=== PATIENT | male | born 1990 | race Caucasian/White ===

== ENCOUNTER 2017-06-28 20:47 | Observation (INO) | payer OTHER ==
[~2017-06-28] VITALS: Ht 182.9 cm; Wt 85.0 kg
[2017-06-28 20:48] VITALS: BP 137/88; PULSE 82; RESP 16; TEMP 99.3; O2SAT 100
[2017-06-28] MEDS ORDERED: TETANUS/DIPHTHERIA TOXOID ADULT 0.5 ML VIAL IM ONE (22:30)
--- NOTE | 2017-06-28 22:33 | PD ---
HPI Chief Complaint: Eye Problems/Injury Time Seen by Provider: 22:00 Travel History International Travel<30 days: No Contact w/Intl Traveler<30days: No Traveled to known affect area: No History of Present Illness HPI 26-year-old male here for evaluation of left eye pain and possible left eye foreign body. 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 Since that time he has had blurry vision and spots in his vision as well as pain in his eye. He believes that there may be something still in his eye. He does not wear contacts. States that for about the last week he is also felt as though there is something in his right eye. Pain is mild, constant. Date of last tetanus is unknown. PFSH Past Medical History Diminished Hearing: No Tetanus Vaccination: Unknown Influenza Vaccination: No Past Surgical History Surgical History: No Previous Surgery Social History Alcohol Use: No Tobacco Use: Yes Substance Use: No Allergies-Medications (Allergen,Severity, Reaction): Coded Allergies: No Known Allergies (Unverified , 06/28/17) Reported Meds & Prescriptions Reported Meds & Active Scripts Active No Active Prescriptions or Reported Medications Review of Systems Except as stated in HPI: all other systems reviewed are Neg Physical Exam Narrative GENERAL: Pleasant, well-developed, well-nourished, comfortable, no apparent distress. SKIN: Focused skin assessment warm/dry. HEAD: Atraumatic. Normocephalic. EYES: Pupils equal, round, 3 mm, reactive to light. EOMI. No proptosis. There is an obvious V-shaped laceration over the left cornea at the 6 o'clock position to the pupil. Eyelids were everted and there are no obvious foreign bodies. Fluorescein stain shows a deep V-shaped laceration to the left cornea with positive Homar sign. Fluorescein stain of the right eye shows a very superficial mid corneal abrasion without dendritic lesions. Intraocular pressure show 15 mmHg in the right eye, 5 mmHg in the left eye. Visual acuity is 20/20 in the right eye, 20/70 in the left eye. There is a moderate amount of left scleral injection. ENT: No nasal bleeding or discharge. Mucous membranes pink and moist. CARDIOVASCULAR: Regular rate and rhythm. RESPIRATORY: No accessory muscle use. Clear to auscultation. Breath sounds equal bilaterally. MUSCULOSKELETAL: No obvious deformities. No clubbing. No cyanosis. No edema. NEUROLOGICAL: Awake and alert. No obvious cranial nerve deficits. Motor grossly within normal limits. Normal speech. PSYCHIATRIC: Appropriate mood and affect; insight and judgment normal. Data Data Last Documented VS Vital Signs Date Time Temp Pulse Resp B/P (MAP) Pulse Ox O2 Delivery O2 Flow Rate FiO2 06/28/17 20:48 99.3 82 16 137/88 (104) 100 Room Air Orders Orders Tetanus/Diphtheria Tox Adult (Tetanus/Di (06/28/17 22:30) Basic Metabolic Panel (Bmp) (06/28/17 23:23) Complete Blood Count With Diff (06/28/17 23:23) Prothrombin Time / Inr (Pt) (06/28/17 23:23) Act Partial Throm Time (Ptt) (06/28/17 23:23) Iv Access Insert/Monitor (06/28/17 23:23) Sodium Chloride 0.9% Flush (Ns Flush) (06/28/17 23:30) Admit Order (Ed Use Only) (06/28/17 23:30) MDM Medical Decision Making Medical Screen Exam Complete: Yes Emergency Medical Condition: Yes Differential Diagnosis Corneal abrasion, globe rupture, intraocular foreign body. Narrative Course Patient's physical exam shows a very deep corneal laceration on the left eye with positive Homar sign. Intraocular pressure in the left eye is 5 mmHg while it is 15 mmHg in the right eye. I am concerned about possible globe rupture. 10:20 PM: Case was discussed with on-call carbonizer Dr. Villalta who will present to the emergency department to evaluate the patient. 11:20 PM: Patient was evaluated by carbonizer Dr. Villalta. Unfortunately the patient has been drinking monster energy drink, and cannot have anesthesia for 6-8 hours. He has been placed on the OR schedule for the morning. He will be admitted for overnight observation to the medical service. Case discussed with hospitalist Dr. Soto who will admit the patient to her service. Diagnosis Primary Impression: Ruptured globe of left eye Qualified Codes: S05.32XA - Ocular laceration without prolapse or loss of intraocular tissue, left eye, initial encounter Additional Impression: Corneal laceration of left eye Qualified Codes: S05.32XA - Ocular laceration without prolapse or loss of intraocular tissue, left eye, initial encounter Admitting Information Admitting Physician Requests: Observation Scripts No Active Prescriptions or Reported Meds Chema Sanchez MD Jun 28, 2017 22:33
[2017-06-28] MEDS ORDERED: SODIUM CHLORIDE 0.9% FLUSH 10 ML FLUSH IV FLUSH PRN (23:30)
[2017-06-28] MEDS ORDERED: SODIUM CHLOR 0.9% 1000 ML INJ 1,000 ML IV SCH (23:48)
--- NOTE | 2017-06-28 23:48 | HHI.HP ---
[facility] Primary Care Physician No Primary Care Physician Admission Diagnosis left corneal laceration with globe rupture Diagnoses: (1) Corneal laceration of left eye Diagnosis: Principal (2) Ruptured globe of left eye Diagnosis: Principal (3) Tobacco abuse Diagnosis: Principal Travel History International Travel<30 Days: No Contact w/Intl Traveler <30 Da: No Traveled to Known Affected Are: No History of Present Illness This is a 26-year-old male with no significant PMH of visits the ER with complaints of left eye pain and concern for possible foreign body after injury at work. 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 Reports immediate pain to left eye w/ blurry vision. Pain is constant, foreign body sensation, 6/10. No other injuries noted. S/p eye exam w/ Fluorescein showing laceration to left cornea w/ globe rupture. Dr. Villalta consulted, plan is for surgical intervention in am. Review of Systems Except as stated in HPI: all other systems reviewed are Neg ROS: 14 point review of systems otherwise negative. Past Family Social History Past Medical History PMH: None Past Surgical History PAST SURGICAL HISTORY: None Allergies: Coded Allergies: No Known Allergies (Unverified , 06/28/17) Family History PAST FAMILY HISTORY: Reviewed. No h/o DM or CAD Social History PAST SOCIAL HISTORY: Negative for alcohol or drugs. Positive for tobacco. Physical Exam Vital Signs Vital Signs Date Time Temp Pulse Resp B/P (MAP) Pulse Ox O2 Delivery O2 Flow Rate FiO2 06/28/17 20:48 99.3 82 16 137/88 (104) 100 Room Air Physical Exam PE: GENERAL: Young male in no acute distress. HEENT: PERRLA, EOMI. Left corneal laceration inferiorly. No scleral icterus or conjunctival pallor. No lid lag or facial droop. CARDIOVASCULAR: Regular rate and rhythm. No obvious murmurs to auscultation. No chest tenderness to palpation. RESPIRATORY: No obvious rhonchi or wheezing. Clear to auscultation. Breath sounds equal bilaterally. GASTROINTESTINAL: Abdomen soft, non-tender, nondistended. BS normal. MUSCULOSKELETAL: Extremities without clubbing, cyanosis, or edema. No obvious deformities. NEUROLOGICAL: Awake, alert and oriented x4. No focal neurologic deficits. Moving both upper and lower extremities spontaneously. Caprini VTE Risk Assessment Caprini VTE Risk Assessment: No/Low Risk (score <= 1) Caprini Risk Assessment Model Point Value = 1 Point Value = 2 Point Value = 3 Point Value = 5 Age 41-60 Minor surgery BMI > 25 kg/m2 Swollen legs Varicose veins or History of unexplained or recurrent spontaneous Oral contraceptives or hormone replacement Sepsis (< 1 month) Serious lung disease, including pneumonia (< 1 month) Abnormal pulmonary function Acute myocardial infarction Congestive heart failure (< 1 month) History of inflammatory bowel disease Medical patient at bed rest Age 61-74 Arthroscopic surgery Major open surgery (> 45 min) Laparoscopic surgery (> 45 min) Malignancy Confined to bed (> 72 hours) Immobilizing plaster cast Central venous access Age >= 75 History of VTE Family history of VTE Factor V Leiden Prothrombin [id number] Lupus anticoagulant Anticardiolipin antibodies Elevated serum homocysteine Heparin-induced thrombocytopenia Other congenital or acquired thrombophilia Stroke (< 1 month) Elective arthroplasty Hip, pelvis, or leg fracture Acute spinal cord injury (< 1 month) Prophylaxis Regimen Total Risk Factor Score Risk Level Prophylaxis Regimen 0-1 Low Early ambulation 2 Moderate Order ONE of the following: *Sequential Compression Device (SCD) *Heparin 5000 units SQ BID 3-4 Higher Order ONE of the following medications: *Heparin 5000 units SQ TID *Enoxaparin/Lovenox 40 mg SQ daily (WT < 150 kg, CrCl > 30 mL/min) *Enoxaparin/Lovenox 30 mg SQ daily (WT < 150 kg, CrCl > 10-29 mL/min) *Enoxaparin/Lovenox 30 mg SQ BID (WT < 150 kg, CrCl > 30 mL/min) AND/OR *Sequential Compression Device (SCD) 5 or more Highest Order ONE of the following medications: *Heparin 5000 units SQ TID (Preferred with Epidurals) *Enoxaparin/Lovenox 40 mg SQ daily (WT < 150 kg, CrCl > 30 mL/min) *Enoxaparin/Lovenox 30 mg SQ daily (WT < 150 kg, CrCl > 10-29 mL/min) *Enoxaparin/Lovenox 30 mg SQ BID (WT < 150 kg, CrCl > 30 mL/min) AND *Sequential Compression Device (SCD) Assessment and Plan Problem List: (1) Ruptured globe of left eye ICD Code: S05.32XA - Ocular laceration without prolapse or loss of intraocular tissue, left eye, initial encounter Status: Acute (2) Corneal laceration of left eye ICD Code: S05.32XA - Ocular laceration without prolapse or loss of intraocular tissue, left eye, initial encounter Status: Acute (3) Tobacco abuse ICD Code: Z72.0 - Tobacco use Assessment and Plan A/P: 1. Left Corneal Laceration/Globe Rupture: s/p injury at work, piece of vinyl shot underneath protective glasses into left eye, +corneal laceration w/ globe rupture. Dr. Villalta consulted by ER physician, pt evaluated in ER, plan for surgical intervention however pt had energy drink this evening, surgery postponed till the morning, scheduled for 8am. Cleared for discharge after surgery per Dr. Villalta. NPO, IVF, analgesics/antiemetics. Pre-op labs reviewed and unremarkable. 2. Tobacco Abuse: Pt counselled. NicoDerm prn. 3. DVT Prophylaxis: SCD/Teds 4. Social work for d/c planning as needed. 5. Case discussed w/ ER physician at length, case/plan of care discussed w/ Dr. Villalta. Problem Qualifiers (1) Corneal laceration of left eye: Qualified Codes: S05.32XA - Ocular laceration without prolapse or loss of intraocular tissue, left eye, initial encounter (2) Ruptured globe of left eye: Qualified Codes: S05.32XA - Ocular laceration without prolapse or loss of intraocular tissue, left eye, initial encounter Delmi Soto MD Jun 28, 2017 23:48
[2017-06-29] MEDS ORDERED: ACETAMINOPHEN/HYDROcodone 325 MG/10 MG TAB PO PRN
[2017-06-29] MEDS ORDERED: ACETAMINOPHEN/HYDROcodone 325 MG/5 MG TAB PO PRN
[2017-06-29] MEDS ORDERED: SENNOSIDES 8.6 MG TAB PO PRN
[2017-06-29] MEDS ORDERED: ONDANSETRON HCL 4 MG/2 ML VIAL IVP PRN
[2017-06-29] MEDS ORDERED: ACETAMINOPHEN 325 MG TAB PO PRN
[2017-06-29] MEDS ORDERED: BISACODYL 10 MG SUPP RECTAL PRN
[2017-06-29] MEDS ORDERED: SODIUM CHLORIDE 0.9% FLUSH 10 ML FLUSH IV FLUSH PRN
[2017-06-29] MEDS ORDERED: MAGNESIUM HYDROXIDE SUSP 30 ML CUP PO PRN
[2017-06-29] MEDS ORDERED: LACTULOSE SYRUP 20 GM/30 ML CUP PO PRN
--- NOTE | 2017-06-29 00:07 | PD.CONS ---
History of Present Illness Service Ophthalmology Consult Requested By Reason for Consult ruptured globe left eye Primary Care Physician No Primary Care Physician Diagnoses: History of Present Illness 26 yo M presents to ED c/o left eye pain and decreased vision. States he was cutting plastic/vinyl and felt something fly into his left eye under his protective goggles. Had immediate pain and loss of vision but feels it has been gradually improving over the last 12 hours. No significant ocular history. Past Family Social History Allergies: Coded Allergies: No Known Allergies (Unverified , 06/28/17) Physical Exam Vital Signs Vital Signs Date Time Temp Pulse Resp B/P (MAP) Pulse Ox O2 Delivery O2 Flow Rate FiO2 06/28/17 20:48 99.3 82 16 137/88 (104) 100 Room Air Physical Exam Va sc at near OD 20/20, OS 20/25 EOM full OU, no diplopia CVF full OU Pupils 2-1 no APD OU IOP deferred Anterior exam OD - normal eyelid, C/S W&Q, K clear, AC deep, pupil round, lens clear OS - normal eyelid, conj injection, corneal laceration in V shape inferiorly 3x3mm, AC deep, pupil irregular, lens clear Assessment and Plan Problem List: (1) Ruptured globe of left eye ICD Codes: S05.32XA - Ocular laceration without prolapse or loss of intraocular tissue, left eye, initial encounter Status: Acute Plan: RBA discussed. Patient had energy drink 20 min ago so will have to wait 6 -8 hours prior to starting surgery. Scheduled for 8am tomorrow morning. Consent for ruptured globe repair left eye. NPO after midnight. Admit to medicine for 23 hour Obs. Ok to be discharged after OR tomorrow. IV Vanc/Ancef. Eye shield over left eye. Problem Qualifiers (1) Ruptured globe of left eye: Qualified Codes: S05.32XA - Ocular laceration without prolapse or loss of intraocular tissue, left eye, initial encounter Lori Villalta MD Jun 29, 2017 00:07
[2017-06-29 00:10] LABS: AUTOMATED NEUTROPHIL # 5.3 TH/MM3 (1.8-7.7); BASOPHIL % 0.3 % (0.0-2.0); EOSINOPHIL # 0.2 TH/MM3 (0-0.4); EOSINOPHIL % 2.2 % (0.0-4.0); HEMATOCRIT 45.4 % (39.0-51.0); HEMOGLOBIN 15.5 GM/DL (13.0-17.0); LYMPH % 34.2 % (9.0-44.0); LYMPHOCYTE # 3.3 TH/MM3 (1.0-4.8); MEAN CELL VOLUME 88.8 FL (80.0-100.0); MEAN CORPUSCULAR HEMOGLOBIN 30.3 PG (27.0-34.0); MEAN CORPUSCULAR HGB CONC 34.1 % (32.0-36.0); MEAN PLATELET VOLUME 8.7 FL (7.0-11.0); MONOCYTE # 0.8 TH/MM3 (0-0.9); NEUT % 55.3 % (16.0-70.0); PLATELET COUNT 221 TH/MM3 (150-450); RED BLOOD COUNT 5.11 MIL/MM3 (4.50-5.90); RED CELL DISTRIBUTION WIDTH 12.5 % (11.6-17.2); WHITE BLOOD COUNT 9.6 TH/MM3 (4.0-11.0)
[2017-06-29 00:26] LABS: BICARBONATE 31.4 MEQ/L (21.0-32.0); CALCIUM 9.1 MG/DL (8.5-10.1); CREATININE 0.93 MG/DL (0.60-1.30)
[2017-06-29 00:50] VITALS: BP 129/69; PULSE 61; RESP 18; O2SAT 99
[2017-06-29 01:12] LABS: INTERNATIONAL NORMALIZED RATIO 1.1 RATIO; PROTHROMBIN TIME - PATIENT 10.8 SEC (9.8-11.6)
[2017-06-29] MEDS ORDERED: methylPREDNISolone SOD SUCC 40 MG/1 ML VIAL ONE (07:38)
[2017-06-29] MEDS ORDERED: VANCOMYCIN 500 MG VIAL ONE (07:38)
[2017-06-29] MEDS ORDERED: SODIUM CHLORIDE 0.9% 20 ML VIAL ONE (07:50)
[2017-06-29] MEDS ORDERED: GENTAMICIN SULFATE 80 MG/2 ML VIAL ONE (07:50)
[2017-06-29] MEDS ORDERED: ONDANSETRON HCL 4 MG/2 ML VIAL IV ONE (08:00)
[2017-06-29] MEDS ORDERED: DEXAMETHASONE SOD PHOS 4 MG/ML VIAL IV ONE (08:00)
[2017-06-29] MEDS ORDERED: LIDOCAINE HCL 1% PF 5 ML SYRINGE OTHER ONE (08:00)
[2017-06-29] MEDS ORDERED: LACTATED RINGER'S 1000 ML INJ 1,000 ML IV ONE (08:00)
[2017-06-29] MEDS ORDERED: PROPOFOL 200 MG/20 ML AMP IV ONE (08:00)
[2017-06-29] MEDS ORDERED: ACETAMINOPHEN 1000 MG/100 ML 100 ML IV ONE (08:01)
[2017-06-29] MEDS ORDERED: TOBRAMYCIN/DEXAMETHASONE OPTH OINT 3.5 GM TUBE ONE (08:04)
[2017-06-29] MEDS ORDERED: TOBRAMYCIN 0.3%/DEXAMETHASONE 0.1% OPHT SUSP 5 ML BTL ONE (08:04)
[2017-06-29] MEDS ORDERED: ceFAZolin 2 GM PREMIX 50 ML ONE (08:33)
--- NOTE | 2017-06-29 08:38 | HHI.PR ---
Objective Vitals Vital Signs Date Time Temp Pulse Resp B/P (MAP) Pulse Ox O2 Delivery O2 Flow Rate FiO2 06/29/17 07:37 06/29/17 00:50 61 18 129/69 (89) 99 Room Air 06/28/17 20:48 99.3 82 16 137/88 (104) 100 Room Air Result Diagram: 06/28/17 2345 06/28/17 2345 Objective Remarks GENERAL: Young male in no acute distress. CARDIOVASCULAR: Regular rate and rhythm. No obvious murmurs to auscultation. No chest tenderness to palpation. RESPIRATORY: No obvious rhonchi or wheezing. Clear to auscultation. Breath sounds equal bilaterally. GASTROINTESTINAL: Abdomen soft, non-tender, nondistended. BS normal. MUSCULOSKELETAL: Extremities without clubbing, cyanosis, or edema. No obvious deformities. NEUROLOGICAL: Awake, alert and oriented x4. No focal neurologic deficits. Moving both upper and lower extremities spontaneously. A/P Problem List: (1) Ruptured globe of left eye ICD Code: S05.32XA - Ocular laceration without prolapse or loss of intraocular tissue, left eye, initial encounter Status: Acute (2) Corneal laceration of left eye ICD Code: S05.32XA - Ocular laceration without prolapse or loss of intraocular tissue, left eye, initial encounter Status: Acute (3) Tobacco abuse ICD Code: Z72.0 - Tobacco use Assessment and Plan 1. Left Corneal Laceration/Globe Rupture: s/p injury at work, piece of vinyl shot underneath protective glasses into left eye, +corneal laceration w/ globe rupture. Dr. Villalta consulted by ER physician, pt evaluated in ER, plan for surgical intervention however pt had energy drink this evening, surgery postponed till the morning, scheduled for 8am. Cleared for discharge after surgery per Dr. Villalta. NPO, IVF, analgesics/antiemetics. Pre-op labs reviewed and unremarkable. 2. Tobacco Abuse: Pt counselled. NicoDerm prn. 3. DVT Prophylaxis: SCD/Teds 4. Social work for d/c planning as needed. Problem Qualifiers (1) Ruptured globe of left eye: Qualified Codes: S05.32XA - Ocular laceration without prolapse or loss of intraocular tissue, left eye, initial encounter (2) Corneal laceration of left eye: Qualified Codes: S05.32XA - Ocular laceration without prolapse or loss of intraocular tissue, left eye, initial encounter Rajani Ballesteros MD Jun 29, 2017 08:38 Hillary Loya PA-C Jun 29, 2017 14:06
[2017-06-29] MEDS ORDERED: DEXAMETHASONE SOD PHOS 4 MG/ML VIAL ONE (08:55)
[2017-06-29] MEDS ORDERED: DOCUSATE SODIUM 50 MG/SENNA 8.6 MG TAB PO SCH (09:00)
[2017-06-29] MEDS ORDERED: SODIUM CHLORIDE 0.9% FLUSH 10 ML FLUSH IV FLUSH SCH (09:00)
--- NOTE | 2017-06-29 09:13 | PD.OP ---
Operative Report Date of Surgery: Jun 29, 2017 Preoperative Diagnosis: (1) Ruptured globe of left eye Postoperative Diagnosis: (1) Ruptured globe of left eye Procedure: repair of ruptured globe left eye Anesthesia: General Surgeon: Lori Villalta Industrial Technologist(s): none Operation and Findings: Patient was consented for surgery and taken back to the operating room. He was put under general anesthesia and prepped and draped in the usual sterile fashion for ophthalmic surgery. A wire lid speculum was placed in the left eye. A jagged laceration was noted 3x3mm on the inferotemporal quadrant of the cornea. TobraDex drops were used to irrigate the cornea. 10-0 nylon interrupted sutures were placed to close the laceration. The anterior chamber was reinflated with BSS. The wound was found to be watertight. Subconjunctival tobramycin and dexamethasone were injected at the end of the case. TobraDex ointment, a patch, and shield were placed on the left eye. The patient was sent to PACU in stable condition. Lori Villalta MD Jun 29, 2017 09:13
[2017-06-29] MEDS ORDERED: DO NOT ADM ANY ANTICOAGULANT DRUGS PRN (09:18)
--- NOTE | 2017-06-29 09:20 | HHI.PR ---
Subjective Remarks Pt currently in PACU s/p repair of ruptured globe repair left eye. Objective Vital Signs Date Time Temp Pulse Resp B/P (MAP) Pulse Ox O2 Delivery O2 Flow Rate FiO2 06/29/17 07:37 06/29/17 00:50 61 18 129/69 (89) 99 Room Air 06/28/17 20:48 99.3 82 16 137/88 (104) 100 Room Air Result Diagram: 06/28/17 2345 06/28/17 2345 Objective Remarks Eye shield in place on left eye Assessment and Plan Problem List: (1) Ruptured globe of left eye ICD Codes: S05.32XA - Ocular laceration without prolapse or loss of intraocular tissue, left eye, initial encounter Status: Acute Plan: s/p repair of ruptured globe. Keep patch on eye until coming to the office tomorrow. Follow up at [address] [place] [address] at 11:30am tomorrow. [phone]. Ok to discharge once stable. Problem Qualifiers (1) Ruptured globe of left eye: Qualified Codes: S05.32XA - Ocular laceration without prolapse or loss of intraocular tissue, left eye, initial encounter Lori Villalta MD Jun 29, 2017 09:20
[2017-06-29 10:15] VITALS: BP 120/63; PULSE 66; RESP 18; O2SAT 100
--- NOTE | 2017-06-29 14:14 | HHI.PR ---
Addendum Remarks The patient went for surgery early this morning prior to being seen. Attempted to see patient this afternoon however was told by RN he was discharged from PACU by provider relations manager at 10:15am. He has follow up appointment arranged with Dr. Villalta tomorrow 06/30 at 11:30am. Discharge patient to home Condition on discharge: Improved Regular Diet as tolerated Ad Leandra activity Rx written: Follow-up with primary care physician Follow up with provider relations manager Dr. Villalta tomorrow 06/30 Hillary Loya PA-C Jun 29, 2017 14:14
== END 2017-06-29 10:15 | disposition home or self-care (01) ==
LOC: NEPD 20:47 → NEDA 23:31 → NEDH 06-29 00:14
PROVIDERS: ADMIT Hospitalist; ATTEND Hospitalist
DX: S05.32XA Ocular laceration without prolapse or loss of intraocular tissue, left eye, initial encounter (principal); Z72.0 Tobacco use; X58.XXXA Exposure to other specified factors, initial encounter; Y99.0 Civilian activity done for income or pay
CPT/HCPCS: 00140; 65280; 80048; 85025; 85610; 85730; 90471; 90714; 99285; G0378; J0131; J0690; J1100; J2405; J3010; J7030; J7120; J1580; J2920; J3370